=== PATIENT | female | born 1975 | race American Indian/Alaskan Native ===

== ENCOUNTER 2017-03-08 13:34 | Emergency (ER) | payer OTHER ==
[2017-03-08 13:51] VITALS: BP 107/72; PULSE 75; TEMP 98.5
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
[2017-03-08 15:19] VITALS: RESP 18; O2SAT 97
--- NOTE | 2017-03-08 15:41 | RAD ---
PROCEDURE: Radiographs of the left elbow. HISTORY: injury COMPARISON: No prior. FINDINGS: BONES: Normal. No fracture. JOINTS: Normal. No osteoarthritis. SOFT TISSUES: Normal. JOINT EFFUSION: No posterior nor significant anterior joint effusion OTHER FINDINGS: None IMPRESSION: No evidence of acute displaced fracture nor dislocation
--- NOTE | 2017-03-08 15:45 | RAD ---
PROCEDURE: Radiographs of the Chest and Left Ribs. HISTORY: injury COMPARISON: No prior study available for comparison TECHNIQUE: Frontal radiograph of the chest and multiple oblique radiographs of the left ribs were obtained. FINDINGS: LEFT RIBS: No definitive radiographic evidence of acute displaced rib fracture. The osseous structures appear intact. Note made of a prominent transverse processes arising from the C7 segment left larger than right LUNGS: No evidence of infiltrate or contusion. . PLEURA: No pneumothorax or pleural fluid. CARDIOVASCULAR: Normal sized heart. No pulmonary vascular congestion. OTHER FINDINGS: None. IMPRESSION: No definitive radiographic evidence of acute displaced rib fracture. No acute cardiopulmonary disease.
== END 2017-03-08 15:20 | disposition home or self-care (01) ==
LOC: C.ER 13:34
DX: S20.212A Contusion of left front wall of thorax, initial encounter (principal); S50.02XA Contusion of left elbow, initial encounter; V03.90XA Pedestrian on foot injured in collision with car, pick-up truck or van, unspecified whether traffic or nontraffic accident, initial encounter; Y92.410 Unspecified street and highway as the place of occurrence of the external cause